=== PATIENT | male | born 1945 | race Caucasian/White ===

== ENCOUNTER 2024-10-31 17:55 | Emergency (ER) | payer MEDICARE, OTHER ==
[~2024-10-31] VITALS: Ht 167.6 cm; Wt 72.7 kg
[2024-10-31 18:09] VITALS: TEMP 98.2
[2024-10-31 20:09] LABS: BASOPHILS % (AUTO) 0.5 % (0.0-2.0); EOSINOPHILS % (AUTO) 1.6 % (1.0-6.0); HEMATOCRIT 38.1 % (41-53); HEMOGLOBIN 12.7 g/dL (13.5-17.5); LYMPHOCYTES % (AUTO) 13.8 % (22.0-44.0); MEAN CORPUSCULAR HEMOGLOBIN 30.4 pg (26.0-34.0); MEAN CORPUSCULAR HGB CONC 33.4 G/dL (31.0-37.0); MEAN CORPUSCULAR VOLUME 91 fL (80-100); MONOCYTES # (AUTO) 0.8 K/uL (0.1-1.0); MONOCYTES % (AUTO) 10.5 % (2.0-9.0); NEUTROPHILS # (AUTO) 5.6 K/uL (1.8-7.7); NEUTROPHILS % (AUTO) 73.6 % (40.0-70.0); PLATELET COUNT (AUTO) 193 K/uL (150-450); RED BLOOD CELL COUNT(AUTO) 4.19 MIL/uL (4.50-5.90); WHITE BLOOD COUNT (AUTO) 7.6 K/uL (4.5-11.0)
[2024-10-31 20:17] LABS: ANION GAP 10 mmol/L (8-16); CARBON DIOXIDE 25 mmol/L (22-29); CHLORIDE 103 mmol/L (98-107); CREATININE 0.95 mg/dL (0.60-1.30); GLOMERULAR FILTR. RATE CALC > 60 mL/min (>60); GLUCOSE,RANDOM 132 mg/dL (70-110); POTASSIUM 4.4 mmol/L (3.5-5.1); SODIUM SERUM 138 mmol/L (136-145); UREA NITROGEN, BLOOD 14 mg/dL (7-18)
[2024-10-31 20:28] LABS: PROTHROMBIN TIME 11.5 SEC (9.4-11.6)
[2024-10-31] MEDS ORDERED: AMLO-258 PO (20:47)
[2024-10-31] MEDS ORDERED: LOSA-382 PO (20:47)
[2024-10-31] MEDS ORDERED: METO-325 PO (20:47)
[2024-10-31] MEDS ORDERED: ATOR40TA28 PO (20:47)
[2024-10-31] MEDS ORDERED: LINA290C PO (20:47)
[2024-10-31] MEDS ORDERED: FERR325T27 PO (20:47)
[2024-10-31 22:54] VITALS: BP 139/86; PULSE 85; RESP 17; O2SAT 98
== END 2024-10-31 23:48 | disposition home or self-care (01) ==
LOC: EMS 17:57
DX: S61.501A Unspecified open wound of right wrist, initial encounter (principal); I10 Essential (primary) hypertension; F32.A Depression, unspecified; Z79.899 Other long term (current) drug therapy; X58.XXXA Exposure to other specified factors, initial encounter; Y93.89 Activity, other specified; Y92.89 Other specified places as the place of occurrence of the external cause; Y99.8 Other external cause status
CPT/HCPCS: 80048; 85025; 85610; 85730; 99283